=== PATIENT | male | born 1990 | race African-American/Black ===

== ENCOUNTER 2020-03-25 09:54 | Emergency (ER) | payer SELFPAY ==
[~2020-03-25] VITALS: Ht 175.3 cm; Wt 68.5 kg
[2020-03-25 10:55] LABS: CLARITY URINE CLEAR (CLEAR); COLOR URINE YELLOW (YELLOW); KETONES URINE 1+ (NEGATIVE); LEUKOCYTE ESTERASE URINE NEGATIVE (NEGATIVE); NITRITE URINE NEGATIVE (NEGATIVE); OCCULT BLOOD URINE NEGATIVE (NEGATIVE); PH URINE 5.5 (4.5-8.0); PROTEIN URINE TRACE (NEGATIVE)
[2020-03-25 10:55] LABS: BASOPHILS % 0.5 % (0.0-2.0); EOSINOPHILS % 0.2 % (0.0-5.0); HEMATOCRIT. 48.1 % (42.0-52.0); HEMOGLOBIN. 16.3 g/dL (14.0-18.0); LYMPHOCYTES % 12.2 % (20.0-50.0); MEAN CORPUSCULAR HEMOGLOBIN 30.4 pg (28.0-32.0); MEAN CORPUSCULAR VOLUME 89.8 fL (80.0-94.0); MEAN PLATELET VOLUME 8.5 fl (7.4-10.4); MONOCYTES % 4.8 % (2.0-8.0); NEUTROPHILS % 82.3 % (40.0-76.0); PLATELET 125 x1000/uL (130-400); RED BLOOD CELL COUNT 5.35 mill/uL (4.7-6.1); RED CELL DISTRIBUTION WIDTH 14.2 % (11.6-14.6)
[2020-03-25 11:06] LABS: CHLORIDE 107 mEq/L (98-107)
[2020-03-25 11:09] LABS: PROTHROMBIN TIME 10.8 sec (9.6-11.0)
[2020-03-25] MEDS ORDERED: ONDANSETRON HCL 4MG TABLET PO ONE (11:15)
[2020-03-25] MEDS ORDERED: KETOROLAC 30MG/ML VIAL IV STA (11:24)
[2020-03-25] MEDS ORDERED: SODIUM CHLORIDE 0.9% 1,000 ML IV ONE (11:24)
[2020-03-25] MEDS ORDERED: MAGNESIUM/ALUMINUM HYDROXIDE/SIMETHICONE 30ML UDC PO STA (11:24)
[2020-03-25] MEDS ORDERED: ONDANSETRON HCL 4MG/2ML INJ IV ONE (11:30)
[2020-03-25] MEDS ORDERED: IOHEXOL-300 100 ML BOTTLE ONE (14:44)
[2020-03-25] MEDS ORDERED: KETOROLAC 15MG/ML VIAL IV ONE (14:45)
[2020-03-25 15:06] VITALS: BP 127/78
== END 2020-03-25 15:09 | disposition home or self-care (01) ==
LOC: ER 09:54
DX: R10.13 Epigastric pain (principal); R11.10 Vomiting, unspecified
CPT/HCPCS: 36415; 74177; 76705; 80053; 81003; 83690; 85025; 85610; 96361; 96374; 96375; 99285; J1885; J2405; J7030; Q0162; Q9967